=== PATIENT | female | born 1970 | race Caucasian/White ===

== ENCOUNTER 2018-08-14 23:19 | Emergency (ER) | payer SELFPAY ==
[2018-08-14 23:50] LABS: Absolute Lymphocytes (CBC) 1.6 K/uL (0.7-4.9); Absolute Monocytes 0.7 K/uL (0.1-1.3); Absolute Neutrophil 9.9 K/uL (1.8-8.0); Basophils % 0.4 % (0-1.3); Eosinophils % 0.6 % (0-4.4); Hematocrit 37.9 % (36.0-45.0); Lymphocytes % 12.9 % (15.3-44.8); MPV 8.4 fL (7.6-11.3); Monocytes % 5.9 % (3.3-12.3); RBC Red Blood Cell Count 4.42 M/uL (3.86-4.86)
[2018-08-15 00:13] LABS: BUN Blood Urea Nitrogen 18 mg/dL (7-18); Bicarbonate 24 mmol/L (21-32); Glucose Level 110 mg/dL (74-106); NT PRO-BNP 398 pg/mL (<125); Potassium 4.1 mmol/L (3.5-5.1); Sodium Level 139 mmol/L (136-145); Troponin (Emerg Dept Use Only) < 0.02 ng/mL (0.0-0.045)
[2018-08-15] MEDS ORDERED: NA CHLORIDE 0.9% 1,000 ML ONE (00:18)
[2018-08-15] MEDS ORDERED: LORazepam 2 MG/ML VIAL ONE (00:26)
--- NOTE | 2018-08-15 02:38 | ER ---
Nurse's Notes [facility] Name: Juanita Chapin Age: 48 yrs Sex: Female : 1970 Arrival Date: 08/14/2018 Time: 23:20 Bed 30 Private MD: Diagnosis: Chest pain, unspecified;Anxiety disorder, unspecified;Hypertension Presentation: 08/14 23:20 Presenting complaint: EMS states: "SHE WAS IN [facility] WHEN SHE STARTED HYPERVENTILATING. rv SHE COMPLAINED OF MIDSTERNUM CHEST PAIN INITIALLY IT IS 10/10. SHE HAS HISTORY OF ANXIETY. GIVEN 324MG OF ASPIRIIN AND 2 PILLS OF 0.4 NITRO SUBLINGUAL". Transition of care: [facility]. Onset of symptoms was August 14, 2018 at 23:00. Risk Assessment: Do you want to hurt yourself or someone else? Patient reports no desire to harm self or others. Initial Sepsis Screen: Does the patient meet any 2 criteria? No. Patient's initial sepsis screen is negative. Does the patient have a suspected source of infection? No. Patient's initial sepsis screen is negative. Care prior to arrival: None. 23:20 Method Of Arrival: EMS: [facility] rv 23:20 Acuity: GENESIS 3 rv Triage Assessment: 23:35 General: Appears in no apparent distress. Behavior is anxious, crying. Pain: Denies rv pain. EENT: No signs and/or symptoms were reported regarding the EENT system. Neuro: Level of Consciousness is awake, alert, obeys commands, Oriented to person, place, time, situation. Cardiovascular: Capillary refill < 3 seconds Rhythm is sinus tachycardia. Respiratory: Airway is patent Respiratory pattern is hyperventilation. GI: No signs and/or symptoms were reported involving the gastrointestinal system. : No signs and/or symptoms were reported regarding the genitourinary system. Derm: Skin is intact. 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 - Social history:: Smoking status: Patient uses tobacco products, denies chronic smoking, but will smoke occasionally. - Ebola Screening: : Patient negative for fever greater than or equal to 101.5 degrees Fahrenheit, and additional compatible Ebola Virus Disease symptoms Patient denies exposure to infectious person Patient denies travel to an Ebola-affected area in the 21 days before illness onset. - Family history:: not pertinent. - Hospitalizations: : No recent hospitalization is reported. Screenin:20 Abuse screen: Denies threats or abuse. Denies injuries from another. Nutritional ca1 screening: No deficits noted. Tuberculosis screening: No symptoms or risk factors identified. Fall Risk None identified. Assessment: 23:20 General: Appears in no apparent distress. Behavior is crying. Pain: Complains of pain ca1 in chest Pain currently is 8 out of 10 on a pain scale. Quality of pain is described as pressure, Pain began 4 hours ago. Neuro: Level of Consciousness is awake, alert, obeys commands, Oriented to person, place, time, situation. Cardiovascular: Heart tones S1 S2 present Capillary refill < 3 seconds Patient's skin is warm and dry. Respiratory: Airway is patent Respiratory effort is even, unlabored, Respiratory pattern is regular, symmetrical, Breath sounds are clear bilaterally. GI: Abdomen is flat, non-distended, Bowel sounds present X 4 quads. Abd is soft and non tender X 4 quads. : No signs and/or symptoms were reported regarding the genitourinary system. EENT: No signs and/or symptoms were reported regarding the EENT system. Derm: Skin is intact, Skin is pink, warm \\T\\ dry. Musculoskeletal: Circulation, motion, and sensation intact. Capillary refill < 3 seconds. 08/15 00:25 Reassessment: Patient and/or family updated on plan of care and expected duration. Pain ca1 level reassessed. Patient is alert, oriented x 3, equal unlabored respirations, skin warm/dry/pink. General: Behavior is calm, cooperative. 01:02 Reassessment: Pt to CT scan. ca1 02:24 Reassessment: Patient appears in no apparent distress at this time. No changes from rv previously documented assessment. Patient and/or family updated on plan of care and expected duration. Pain level reassessed. Patient is alert, oriented x 3, equal unlabored respirations, skin warm/dry/pink. awaiting urine sample. 02:44 Reassessment: pt verbalized understanding of and agrees to plan of care discharge bb instructions given pt ambulated with steady gait to exit accompanied by friend. Vital Signs: 08/14 23:35 BP 180 / 108; Pulse 101; Resp 33; Pulse Ox 99% on R/A; Weight 65.77 kg (R); rv 08/15 00:25 BP 189 / 102; Pulse 90; Resp 16; Pulse Ox 96% on R/A; ca1 00:45 BP 170 / 98; Pulse 85; Resp 19 S; Pulse Ox 98% on R/A; rv 02:24 BP 170 / 116; Pulse 94; Resp 20 S; Pulse Ox 97% on R/A; rv ED Course: 08/14 23:15 Arm band placed on right wrist. ca1 23:20 Patient arrived in ED. rv 23:20 Patient has correct armband on for positive identification. Placed in gown. Bed in low ca1 position. Call light in reach. Side rails up X2. monitor worker on. Pulse ox on. NIBP on. Warm blanket given. 23:22 Ancelmo Lara MD is Attending Physician. rn 23:26 Triage completed. rv 23:27 Jeannie Slade, DANAE is Primary Nurse. ca1 23:35 Missed attempt(s): 20 gauge in right antecubital area. ca1 23:45 Inserted saline lock: 20 gauge in left forearm, using aseptic technique. Blood ca1 collected. 23:48 X-ray completed. Portable x-ray completed in exam room. Patient tolerated procedure kw well. 23:52 XRAY Chest (1 view) In Process Unspecified. EDMS 08/15 01:[address] via stretcher. kw1 01:17 CT completed. Patient tolerated procedure well. Patient moved back from CT. kw1 01:41 CT Aorta for Dissection In Process Unspecified. EDMS 02:46 No provider procedures requiring assistance completed. IV discontinued, intact, bb bleeding controlled, No redness/swelling at site. Pressure dressing applied. Administered Medications: 00:11 Drug: NS 0.9% 1000 ml Route: IV; Rate: 1000 ml; Site: left forearm; ca1 00:17 Drug: Ativan 1 mg Route: IVP; Site: left forearm; ca1 02:37 Drug: cloNIDine 0.2 mg Route: PO; rv Outcome: 02:37 Discharge ordered by . rn 02:47 Discharged to home ambulatory, with friend. bb 02:47 Condition: stable 02:47 Discharge instructions given to patient, Instructed on discharge instructions, follow up and referral plans. Demonstrated understanding of instructions, follow-up care. 02:47 Patient left the ED. bb Signatures: Dispatcher [employer] Violet Alaniz RN RN Ancelmo Dahl MD MD rn Whitley, Sakshi Parry kw1 Radhames Morris RN RN rv Jeannie Slade RN RN ca1 Corrections: (The following items were deleted from the chart) 00:29 08/14 23:30 LMP N/A - Irregular menses ca1 ca1
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
[2018-08-15] MEDS ORDERED: cloNIDine HCl 0.1 MG TAB ONE (02:46)
--- NOTE | 2018-08-15 07:47 | EKG ---
Test Date: 2018-08-14 Test Time: 23:25:11 Cylinder Honer: ELIZABETH MEASUREMENT RESULTS: Intervals: Rate: 102 KS: 130 QRSD: 76 QT: 358 QTc: 466 [place]: P: 60 KS: 130 QRS: 51 T: 46 INTERPRETIVE STATEMENTS: Sinus tachycardia Otherwise normal ECG No previous ECG available for comparison Electronically Signed On 08-15-18 07:45:47 [facility] ADMINISTRATOR by Eleazar Brown
--- NOTE | 2018-08-15 08:48 | RAD REPORT ---
EXAM DESCRIPTION: Sergio Single View08/14/2018 11:51 pm CLINICAL HISTORY: Chest pain COMPARISON: none FINDINGS: Right lung calcified granuloma Calcified hilar lymph nodes The lungs appear clear of acute infiltrate. The heart is normal size IMPRESSION: No acute abnormalities displayed
--- NOTE | 2018-08-16 13:00 | RAD REPORT ---
EXAM DESCRIPTION: CT - Angio Aorta For Dissection - 08/15/2018 3:54 am CLINICAL HISTORY: 48-year-old female with chest pain, hypertension, rule out dissection. COMPARISON: None. TECHNIQUE: CT imaging of the chest, abdomen and pelvis following intravenous contrast administration . The CT study is performed according to ALARA (as low as reasonably achievable) or ALARA/IMAGE GENTL Y, with automatic adjustment of mA and/or kV according to patient size. Performed on: 08/15/2018 at 1:11 AM FINDINGS: CHEST: Lungs: The lungs are well expanded. There is minimal parenchymal opacification in the inferior left l ower lobe possibly reflecting atelectasis and/or pleural parenchymal scarring. There is adjacent volu me loss in the left lower lobe. There is a calcified granuloma in the right upper lobe, anterior left upper lobe and posterior medial right lower lobe. There are no pleural effusions. There is no pneumo thorax. Heart: The heart is normal in size. There is no pericardial effusion. Mediastinum: The mediastinum is unremarkable. The mediastinal vessels are normal in caliber and conto ur. There is no evidence of aortic aneurysm or aortic dissection. Bones: No acute osseous abnormalities are identified. Soft tissues: No focal soft tissue abnormalities are identified. There are bilateral subpectoral munir st prostheses. Lymphadenopathy: No pathologic hilar, mediastinal or axillary lymphadenopathy is identified. ABDOMEN/PELVIS: Liver: The liver is normal in size and configuration. No focal hepatic abnormalities are identified. There is slightly decreased attenuation of the liver which may be due to fatty infiltration. Spleen: The spleen is normal in size, configuration and attenuation. Gallbladder and bile ducts: The gallbladder is well distended and unremarkable. There is no biliary d uctal dilatation. Pancreas: The pancreas is grossly normal in size and configuration. Adrenal Glands: The adrenal glands are normal in size and configuration. Kidneys: The kidneys are normal in size and configuration. There is no evidence of hydronephrosis. Th ere is no evidence of nephrolithiasis. There are small bilateral renal cysts slightly larger on the r ight. An approximately 2.1 cm cyst arising from the mid to upper pole of the right kidney and a 1.3 c m cyst in the anterior midpole of the left kidney. Stomach: The stomach is grossly normal. There is no definite hiatal hernia. Bowel: The bowel gas pattern is non specific and non obstructive. Appendix: The appendix is normal. Free air: There is no evidence of free air. Free fluid: There is no evidence of free fluid. Vasculature: The aorta is normal in caliber and contour. The inferior vena cava is grossly unremarkab le. The aortic visceral branch vessels are unremarkable. There is no evidence of aortic aneurysm or a ortic dissection. Lymphadenopathy: No pathologic lymphadenopathy is identified. Bladder: The bladder is well distended and sooth in contour. Reproductive: The uterus is grossly within normal limits. Bones: No acute osseous abnormalities are identified. There is grade 1 anterolisthesis of L4 relative to L5 and there appear to be pars defects at the L4 level. There is disc space narrowing at L4-L5 an d L5-S1 with vacuum disc changes at L5-S1 Soft tissues: No focal soft tissue abnormalities are identified. IMPRESSION: 1. No evidence of acute intrathoracic disease There is evidence of prior granulomatous d isease. 2. Small patchy parenchymal opacity in the left lower lobe which may be due to atelectasis and/or ple ural parenchymal fibrosis. An acute inflammatory process is considered less likely. 3. No evidence of aortic aneurysm or aortic dissection. 4. Other chronic changes as described above. There is no evidence of acute intra-abdominal or intrape lvic pathology. Electronically signed by Keeley Brock DO 08/15/2018 2:03 AM OFFICE CLEANER Due to temporary technical issues with the PACS/Fluency reporting system, reports are being signed by the in house radiologist as a courtesy to ensure prompt reporting. The interpreting radiologist is f ully responsible for the content of the report.
== END 2018-08-15 02:47 | disposition home or self-care (01) ==
LOC: ER 23:19
DX: R07.9 Chest pain, unspecified (principal); F41.9 Anxiety disorder, unspecified; I10 Essential (primary) hypertension; Z88.2 Allergy status to sulfonamides
CPT/HCPCS: 36415; 71045; 71275; 74175; 80048; 83880; 84484; 85025; 93005; 96374; 99285; J7030; Q9967

== ENCOUNTER 2024-04-23 06:18 | Day surgery (SDC) | payer OTHER ==
[2024-04-19 10:38] LABS: Absolute Basophils 0.1 K/uL (0-0.5); Absolute Eosinophils 0.2 K/uL (0-0.5); Absolute Lymphocytes (CBC) 2.9 K/uL (0.7-4.9); Absolute Monocytes 0.8 K/uL (0.1-1.3); Basophils % 0.7 % (0-1.3); Eosinophils % 1.8 % (0-4.4); Hematocrit 38.8 % (36.0-45.0); Hemoglobin 12.9 g/dL (12.0-15.0); Lymphocytes % 23.9 % (15.3-44.8); MCH 29.1 pg (27.0-35.0); MCHC 33.2 g/dL (32.0-36.0); MCV 87.7 fL (80-100); MPV 8.4 fL (7.6-11.3); Monocytes % 6.6 % (3.3-12.3); Nucleated Red Blood Cells % 0.1 % (0-0); Platelets 363 thou/uL (152-406); RBC Red Blood Cell Count 4.42 M/uL (3.86-4.86); Red Cell Distribution Width 15.3 % (12.1-15.2)
[2024-04-19 10:39] LABS: Specific Gravity 1.017 (1.005-1.030); Transitional Epithelial <5 /HPF (None Seen); Urine Bacteria >50 /HPF (<20); Urine Bilirubin NEGATIVE (Negative); Urine Blood Trace (Negative); Urine Clarity Extremely Turbid (Clear); Urine Color Yellow (Yellow); Urine Culture Reflex Order REFLEXED; Urine Glucose NEGATIVE (Negative); Urine Ketones NEGATIVE (Negative); Urine Microscopic Reflex YN ORDER UMIC; Urine Mucus Slight /HPF (None Seen); Urine Nitrite 2+ (Negative); Urine Protein 1+ (Negative); Urine Urobilinogen Normal (Normal); Urine WBC >50 /HPF (<5)
[2024-04-19 10:43] LABS: PT Prothrombin Time 9.6 SECONDS (9.4-12.5); PTT, Activated Partial Thromb 20.2 SECONDS (24.3-36.9); Protime INR 0.85
[2024-04-19 10:53] LABS: Albumin 3.5 g/dL (3.4-5.0); Albumin/Globulin Ratio 0.8 (1.1-1.8); Bilirubin Total 0.2 mg/dL (0.2-1.0); Globulin 4.2 g/dL (2.3-3.5); Protein, Total 7.7 g/dL (6.4-8.2)
--- NOTE | 2024-04-19 11:39 | RAD REPORT ---
EXAMINATION: TWO VIEW CHEST XR CLINICAL INDICATION: Female, 54 years old[facility]. Hypertension TECHNIQUE: 2 view radiographs of the chest were performed. COMPARISON: 08/14/2018 FINDINGS: The lungs are well inflated and clear. Retrocardiac opacity medially somewhat obscuring the medial le ft costophrenic angle, may reflect a hiatal hernia. No pneumothorax or sizable effusion. The heart is normal in size. Endovascular graft material along the aortic arch and proximal descending aorta no neymar Mediastinal contours are unremarkable. IMPRESSION: No acute or significant abnormalities. Findings as above.
[2024-04-19 11:50] LABS: Blood Morphology Comment NOT SEEN (NOT SEEN); Platelet Estimate ADEQ; White Blood Cell Scan OK (OK)
--- NOTE | 2024-04-19 14:09 | EKG ---
Test Date: 2024-04-19 Test Time: 09:44:06 Car Tester: RAHUL MEASUREMENT RESULTS: Intervals: Rate: 91 MO: 140 QRSD: 76 QT: 372 QTc: 457 [facility]: P: 56 MO: 140 QRS: -12 T: 14 INTERPRETIVE STATEMENTS: Normal sinus rhythm Anterior infarct, age undetermined Abnormal ECG Compared to ECG 08/14/2018 23:25:11 Myocardial infarct finding now present Sinus tachycardia no longer present Electronically Signed On 04-19-24 14:09:07 CDT by Dinesh Patel
[~2024-04-23 06:18] MED LIST: DEXMEDETOMIDINE HCL 200 MCG/2 ML VIAL ONE; EPINEPHRINE 1 MG/ML VIAL ONE; LIDOCAINE 1% MPF 5 ML VIAL ONE; MAGNESIUM SULFATE 1 gm IVPB 1 GM/100 ML BAG IV ONE; ROPIVACAINE HCL 20 ML ONE; ROPLVACAINE HCL 20 ML ONE; dexAMETHasone 10 MG/ML VIAL ONE
[2024-04-23] MEDS: CEFAZOLIN SODIUM 2 GM/VIAL ONE (06:23)
[2024-04-23] MEDS: BUPIVACAINE 0.75% (PF) 2 ML SP ONE (06:24)
[2024-04-23] MEDS ORDERED: FENTANYL CITR 100 MCG/2 ML ONE ×2 (06:28→09:08)
[2024-04-23] MEDS ORDERED: MIDAZOLAM HCL 2 MG/2 ML INJ ONE ×2 (06:28→07:38)
[2024-04-23] MEDS ORDERED: KETAMINE HCL IN 0.9 % NACL 50 MG/5 ML SYRINGE IV ONE (06:34)
[2024-04-23] MEDS: Oxycodone HCl/Acetaminophen 5/325 MG TAB ONE (06:34)
[2024-04-23] MEDS: ACETAMINOPHEN 500 MG TAB ONE (06:34)
[2024-04-23] MEDS: GABAPENTIN 100 MG CAP ONE (06:34)
[2024-04-23] MEDS: TRANEXAMIC ACID 1,000 MG/10 ML VIAL IV ONE (06:37)
[2024-04-23] MEDS ORDERED: EPINEPHRINE 1 MG/ML VIAL ONE ×2 (06:41→08:23)
[2024-04-23] MEDS ORDERED: LIDOCAINE 1% MPF 5 ML VIAL ONE ×3 (06:42→08:36)
[2024-04-23] MEDS ORDERED: ONDANSETRON 4 MG/2 ML VIAL ONE ×2 (06:50→09:17)
[2024-04-23] MEDS ORDERED: NS 0.9% VIAL 10 ML ONE (06:52)
[2024-04-23] MEDS: LIDOCAINE 1% MPF 30 ML VIAL ONE (07:02)
[2024-04-23] MEDS: Ringers Lactate 1,000 ML IV ONE ×2 (07:10→10:24)
[2024-04-23] MEDS ORDERED: ROPLVACAINE HCL 20 ML ONE (08:23)
[2024-04-23] MEDS ORDERED: dexAMETHasone 10 MG/ML VIAL ONE (08:23)
[2024-04-23] MEDS ORDERED: DEXMEDETOMIDINE HCL 200 MCG/2 ML VIAL ONE (08:23)
[2024-04-23] MEDS ORDERED: MAGNESIUM SULFATE 1 gm IVPB 1 GM/100 ML BAG IV ONE (08:23)
[2024-04-23] MEDS ORDERED: ROPIVACAINE HCL 20 ML ONE (08:23)
[2024-04-23] MEDS: CEFAZOLIN SODIUM 2 GM/VIAL IVPB ONE (08:32)
[2024-04-23] MEDS ORDERED: dexAMETHasone 4 MG/ML VIAL ONE (09:17)
--- NOTE | 2024-04-23 09:25 | RAD REPORT ---
Exam:Hip Left 1 View HISTORY: Left hip surgery FINDINGS: Intraoperative film demonstrates a left hip prosthesis in place. No fracture seen
[2024-04-23] MEDS ORDERED: propofoL 200 MG/20 ML VIAL IV ONE (09:43)
[2024-04-23] MEDS ORDERED: DOCUSATE NA 100 MG CAP PO PRN (09:56)
--- NOTE | 2024-04-23 09:56 | P.BOP ---
Preoperative diagnosis: left hip arthritis Postoperative diagnosis: same Primary procedure: left total hip Estimated blood loss: 150 ccs Anesthesia: General Complications: None Transferred to: Recovery Room Condition: Good
[2024-04-23] MEDS: FENTANYL CITR 100 MCG/2 ML ONE (10:26)
--- NOTE | 2024-04-23 10:51 | OP ---
Surgeon: Keagan Christian MD Preoperative Diagnosis: Left hip severe arthritis. Postoperative Diagnosis: Left hip severe arthritis. Procedure: Left total hip arthroplasty using the [place] system. Estimated Blood Loss: 150 cc. Complications: There were no complications. Specimens: No pathology specimens sent other than the head. Indications For Operation: Ms. Chapin is a 54-year-old female who unfortunately has a great deal of destruction on her hip on the x-rays and also has been suffering with significant left hip pain for q uite some time. She has been evaluated by Cardiology and was cleared for surgery, and risks, benefit s, and alternatives to further conservative care versus total hip arthroplasty as well as those speci fically discussed regarding total hip arthroplasty were discussed with her. She states she understan ds things as presented. She does know that she does have some subluxation of the hip, but she should expect a slightly longer leg at the end and agrees to proceed. Description Of Procedure: The patient was taken to the operating room, placed in supine position. G eneral anesthesia was obtained by Anesthesia staff. After spinal had been performed, she was then ro lled right side down on the axillary roll. All her bony prominences were checked. She was positione d using hip positioners. After this, a standard posterior lateral approach was taken down carefully through skin and soft tissue. Meticulous hemostasis being maintained using Bovie electrocautery. Th is led down to the fascia. A small stab wound was made in the fascia where the gluteal tendon was pa lpated to make sure we were in the correct position. After this, an incision was then taken up to ne ar the tip of the greater trochanter where the fibers of gluteus alex were encountered. Gluteus m aximus fibers were then divided using finger pressure. The sciatic nerve was palpated and protected as the Charnley was placed and external rotators and capsule were then taken down carefully and tagge d for later repair. It should be noted that she has a very short trochanter. The head was then jad reno using a standard neck cut and sized using ring gauges to a size 51, 52. After this, any debris w as cleared within the acetabulum and any quite hypertrophic labrum was then removed. The hip was the n sequentially reamed to a size 53. There was good bleeding bone throughout and it did appear that t he cordova were getting a little thin. Rather than oversizing the cup and perhaps sacrificing some sta bility, decision was made to move the size 54 cup, which was then placed in standard technique and ap peared to be good position. It was definitely stable and had a good fit. Following this, attention was then turned to the femur. The switchbox assembler was used to lateralize and then the canal finder was th en placed. It should be noted that the neck cut is a little shorter than normal, and it was then bro ached to what felt to be a good size. X-rays were then taken which demonstrated apparent appropriate sizing of the femur as well as good position of the acetabulum. This was selected. After this, the liner was placed. The final stem was placed. It was then attempted to be trialed. The minus does relocate, but it is fairly tight, and the judgment is that should not recut the neck or try to place different stem and it was felt that this does re-establish the position of the hip and it was expecte d to be tight. This was selected as the final implant. The wound was copiously irrigated. The andrew l ball was then placed, which was the shortest one using the construct. Following this, relocated, c hecked for any signs of problems. It does come to full flexion, full adduction and internal rotation with no sign of dislocation. The wound was then irrigated again. The external rotators and capsule were then repaired back via bone tunnels. After this was again irrigated and the fascia was closed in a watertight fashion using heavy Vicryl sutures and skin irrigated, skin was closed using Vicryl s utures followed by federico. The patient was then placed in Aquacel dressing, awakened, taken to yaa very room in good condition. No complications. SE/MODL Voice ID: [id number] Report ID: [id number]
[2024-04-23 11:00] LABS: Hematocrit 29.6 % (36.0-45.0); Hemoglobin 9.7 g/dL (12.0-15.0)
[2024-04-23 12:13] VITALS: BMI 27.1
[2024-04-23] MEDS: HYDROCODONE/APAP 7.5/325 MG TAB PO PRN (15:17)
[2024-04-23] MEDS: CEFAZOLIN 1 GM in NA CHLORIDE 0.9% 50 ML IVPB SCH (17:09)
[2024-04-23 17:35] LABS: Hematocrit 31.2 % (36.0-45.0); Hemoglobin 10.1 g/dL (12.0-15.0)
--- NOTE | 2024-04-23 18:08 | P.CNS ---
Date of Consult: 04/23/24 Reason for Consult: Medical management Chief Complaint: Patient with left total hip arthroplasty History of Present Illness: Patient is a 54-year-old female who came to the hospital for a left total hip arthroplasty. Patient was taken to the OR and she has done well. Patient is admitted on the floor for extended recovery. Allergies Sulfa (Sulfonamide Antibiotics) Allergy (Verified 04/23/24 07:56) Nausea/Vomiting Home Medications: Amlodipine Besylate 10 mg PO DAILY 04/19/24 Atorvastatin Calcium 20 mg PO DAILY 04/19/24 Dextroamphetamine Sulfate 30 mg PO BID 04/19/24 Lisinopril [Zestril] 20 mg PO DAILY 04/19/24 - Past Medical/Surgical History Diabetic: No -: HTN -: ADHD -: MVD -: Dyslipidemia -: left lower lung removed -: aortic stent - Family History Mother Medical History: Cancer - Social History Smoking Status: Current some day smoker Alcohol use: No CD- Drugs: No Caffeine use: Yes Place of Residence: Home Physical Examination Temp Pulse Resp BP Pulse Ox 97.7 F 81 18 105/55 L 98 04/23/24 16:00 04/23/24 16:00 04/23/24 16:17 04/23/24 16:00 04/23/24 16:17 Laboratory Data (last 24 hrs) 04/23/24 04/23/24 17:25 10:55 Hgb 10.1 L 9.7 L Hct 31.2 L 29.6 L
[2024-04-23] MEDS: DEXTROAMPHETAMINE SULFATE 30 MG PO SCH (21:00)
[2024-04-23] MEDS: MORPHINE 2 MG/ML SYR IV PRN (23:03)
[2024-04-24 00:10] VITALS: O2SAT 93
[2024-04-24 05:15] LABS: Hematocrit 31.7 % (36.0-45.0); Hemoglobin 10.2 g/dL (12.0-15.0)
[2024-04-24 05:41] LABS: Anion Gap 11.4 mEq/L (5.0-15.0); Potassium 4.4 mEq/L (3.5-5.1)
--- NOTE | 2024-04-24 07:44 | P.PN ---
Subjective Date of Service: 04/24/24 Chief Complaint: Patient with left total hip arthroplasty Pain control as needed analgesia, plan to ambulate with physical therapy today Review of Systems 10-point ROS is otherwise unremarkable General: As per HPI Physical Examination - Vital Signs Temperature: 98.1 F Blood Pressure: 103/55 Pulse: 86 Respirations: 16 Pulse Ox (%): 95 - Physical Exam General: Alert, In no apparent distress, Oriented x3 HEENT: Atraumatic, Normocephalic, PERRLA Neck: Supple, Without JVD or thyroid abnormality Respiratory: Clear to auscultation bilaterally, Normal air movement, Other (Encourage ICS) Cardiovascular: No edema, Normal pulses, Regular rate/rhythm Gastrointestinal: Normal bowel sounds, Soft and benign Musculoskeletal: Other (Right total hip arthroplasty, generalized weakness right lower extremity) Integumentary: Other (Right total hip arthroplasty, incision clean dry and intact) Neurological: Normal speech, Normal strength at 5/5 x4 extr, Cranial nerves 3-12 intact - Studies Laboratory Data (last 24 hrs) 04/24/24 04/24/24 04/23/24 05:08 05:08 17:25 Hgb 10.2 L 10.1 L Hct 31.7 L 31.2 L Sodium 135 L Potassium 4.4 BUN 14 Creatinine 1.13 H Glucose 162 H Magnesium 2.0 04/23/24 10:55 Hgb 9.7 L Hct 29.6 L Sodium Potassium BUN Creatinine Glucose Magnesium Assessment And Plan - Current Problems (Diagnosis) (1) S/P total right hip arthroplasty Current Visit: Yes Status: Acute (2) Osteoarthritis Current Visit: Yes Status: Acute (3) Chronic pain Current Visit: Yes Status: Acute (4) Postoperative pain Current Visit: Yes Status: Acute - Plan Admit to [facility] Patient of Dr. Christian PT, OT eval, As needed analgesics, stool softeners, Trend H&H, transfuse less than 8 Fall precautions, Discharge planning per hospital course Discharge Plan: Home - Code Status/Comfort Care Code Status: Full Code Critical Care: No Time Spent Managing PTS Care (In Minutes): 35
[2024-04-24] MEDS: ENOXAPARIN 40 MG/0.4 ML SQ SCH (08:36)
[2024-04-24] MEDS: ATORVASTATIN 20 MG TAB PO SCH (08:36)
[2024-04-24] MEDS: AMLODIPINE 10 MG TAB PO SCH (08:36)
[2024-04-24] MEDS: lisinopriL 20 MG TAB PO SCH (08:36)
[2024-04-28 20:13] VITALS: BP 103/55; TEMP 98.1
== END 2024-04-24 15:06 | disposition home health service (06) ==
LOC: OR 06:18 → 2ND 09:56 → OR 04-24 15:06
PROVIDERS: ATTEND Orthopaedic Surgery
PROC: 0SRB0JA Replacement of Left Hip Joint with Synthetic Substitute, Uncemented, Open Approach (ICD-10-PCS; principal; 2024-04-23 07:18)
DX: M16.12 Unilateral primary osteoarthritis, left hip (principal); G89.18 Other acute postprocedural pain; G89.29 Other chronic pain; I10 Essential (primary) hypertension; F17.210 Nicotine dependence, cigarettes, uncomplicated; Z88.2 Allergy status to sulfonamides
CPT/HCPCS: 93005; 87088; 85025; 81001; 87086; 80048; 36415 ×2; 83735; 81025; 85610; 88304; 88311; 85730; 87077; 87186; 85018 ×3; 85014 ×3; 80053; 71046; 73501; 97535 ×2; 97110; 97116; 97161; 97165; 97530 ×3; 27130; C1776 ×3; J3475; A4216; J2704; J1100 ×2; J2003 ×3; J2001; J1650; J2250 ×2; J3010 ×3; J2270; J0171 ×2; J2405 ×2; J7120 ×2; J0690 ×3; 88305